=== PATIENT | female | born 2000 | race Two or more races ===

== ENCOUNTER 2024-05-21 08:46 | Day surgery (SDC) | payer MEDICAID ==
[~2024-05-21] VITALS: Ht 160 cm; Wt 122.5 kg
[2024-05-21] MEDS ORDERED: ceFAZolin 2 GM/D5W100ml 100 ML IV ONE (10:07)
[2024-05-21] MEDS ORDERED: ACETAMINOPHEN 500 MG TAB or CAP PO ONE ×2 (10:56→11:00)
[2024-05-21] MEDS ORDERED: BUPIVACAINE 0.25% INJ 50ML VIAL ONE (10:57)
[2024-05-21] MEDS ORDERED: GABAPENTIN 300 MG CAP PO ONE (11:00)
[2024-05-21] MEDS ORDERED: CELECOXIB 100 MG CAP PO ONE (11:00)
[2024-05-21] MEDS ORDERED: CELECOXIB 100 MG CAP ONE (11:02)
[2024-05-21] MEDS ORDERED: GABAPENTIN 300 MG CAP ONE (11:03)
[2024-05-21] MEDS ORDERED: KETOROLAC TROMETH 30 MG/ML 1ML VIAL ONE (11:18)
[2024-05-21] MEDS ORDERED: DexAMETHasone SOD PHOS 10MG/1ML VIAL INJ ONE (11:18)
[2024-05-21] MEDS ORDERED: GLYCOPYRROLATE 0.2 MG/ML 1ML VIAL ONE (11:18)
[2024-05-21] MEDS ORDERED: ONDANSETRON HCL 4 MG/2 ML VIAL ONE (11:18)
[2024-05-21] MEDS ORDERED: PROPOFOL 10 MG/ML 20 ML IV ONE (11:18)
[2024-05-21] MEDS ORDERED: LIDOCAINE 2% (LOCAL ANESTH.) PF 5ml SDV ONE (11:18)
[2024-05-21] MEDS ORDERED: KETAMINE 50mg/ML 1ml syringe ONE (11:19)
[2024-05-21] MEDS ORDERED: ceFAZolin 1GM VL ONE (11:20)
[2024-05-21] MEDS ORDERED: fentaNYL CITRATE 100 MCG/2 ML VL ONE (11:44)
[2024-05-21 12:27] VITALS: PULSE 103; RESP 20; TEMP 98.7; O2SAT 100
[2024-05-21] MEDS ORDERED: NALOXONE HCL 0.4 MG/ML VIAL IV PRN (12:45)
[2024-05-21] MEDS ORDERED: oxyCODONE HCL 5MG TAB PO PRN (12:45)
[2024-05-21] MEDS ORDERED: hydrALAZINE HCL 20 MG/ML VL IV PRN (12:45)
[2024-05-21] MEDS ORDERED: ONDANSETRON HCL 4 MG/2 ML VIAL IV PRN (12:45)
[2024-05-21] MEDS ORDERED: ePHEDrine SULFATE 50 MG/ML AMP IV PRN (12:45)
[2024-05-21] MEDS ORDERED: fentaNYL CITRATE 100 MCG/2 ML VL IV PRN (12:45)
[2024-05-21] MEDS ORDERED: FLUMAZENIL 0.1 MG/ML INJ 10ML MDV IV PRN (12:45)
[2024-05-21] MEDS: HYDROmorphone HCL 2 MG/ML VL/or syr IV PRN (13:05)
[2024-05-21 13:45] VITALS: BP 155/75; PULSE 69; RESP 16; O2SAT 99
--- NOTE | 2024-05-21 16:14 | DVH ---
XY R WRIST 2 VIEW XRAY, May 21, 2024 INDICATION: ORIF RIGHT WRIST TECHNICAL DATA: Frontal , bilateral oblique, ulnar deviation and lateral views were obtained of the r ight wrist. COMPARISON: None FINDINGS: There has been internal fixation of the Colles' fracture of the right wrist utilizing a plate and 8 s crews. The fracture fragments are in good position for eventual healing. IMPRESSION: 1. Internal fixation of Colles' fracture with near anatomic positioning achieved.
--- NOTE | 2024-05-21 16:28 | DVH ---
C-ARM FLUOROSCOPY: PROCEDURE: Right wrist ORIF FLUOROSCOPY TIME: 26.1 seconds DAP: 0.5 mgy FINDINGS: Spot intraoperative C arm radiographs demonstrating right wrist ORIF. IMPRESSION: Please refer to surgical report for detailed findings.
--- NOTE | 2024-05-23 16:24 | DVHOP2 ---
Operative Report - 2 Report Details Date: 05/21/24 Preop Diagnosis: Displaced Right distal radius fracture Postop Diagnosis: Displaced Right distal radius fracture Surgeon: dEy Mai MD Curer Acid Drum: Gera CHEUNG Anesthesiologist: George EMERSON Anesthesia: General Implant: ITS Volar distal radius Consent: The patient was informed of the risks and benefits of the procedure. These include but are not limited to complications of anesthesia, postoperative infection, incomplete relief of symptoms, recurrence of symptoms, damage to blood vessels, nerves and tendons, deep venous thrombosis, pulmonary embolism and possible need for repeat surgery in the future. Estimated Blood Loss: 5 cc Name of Procedure Performed 1. Open reduction and internal fixation of Right distal radius fracture 2. Intraoperative Fluoroscopy Procedure Details Procedure Details: CLINICAL SUMMARY: Risks/benefits/options/alternatives were discussed at length with patient and her family. Nonoperative versus operative management was presented to her. Risks include but not exclusive to bleeding, infection, nerve injury, tendon or ligament damage, hardware failure, nonunion, malunion, need for further surgery, amputation, DVT, and . She understood these risks and wished to proceed with surgery. OPERATION: The patient was brought from the home care giver unit and placed on the operating table in a supine position and administered general anesthetic. Tourniquet was placed around the rt upper extremity. Once adequate anesthesia had been obtained, the left upper extremity was prepped and draped in the usual sterile manner. A time out was performed. The upper extremity was then elevated and exsanguinated using an Esmarch dressing. The tourniquet was elevated to 250 mmHg. At this time an approximately 8 cm longitudinal incision was then made overlying the right flexor carpi radialis tendon from the flexion crease to the wrist proximally. This was carried down to the flexor carpi radialis, which was then retracted ulnarly. The floor of the flexor carpi radialis was then incised exposing the flexor pronator muscles. The flexor pollicis longus was retracted ulnarly and the pronator quadratus was longitudinally incised 1 cm from its origin. It was then elevated off of the fracture site exposing the fracture site, which was dorsally displaced. This was an intraarticular three-part frac ture. Under image control, the volar pieces and dorsal pieces were then carefully manipulated and reduced. Then, 2.06 two-inch K-wires were drilled radial into the volar ulnar fragment and then a second K-wire was then drilled from the dorsal radial to the dorsal ulnar piece. The fracture was then manipulated. The fracture ends were copiously irrigated with normal saline and curetted and then the fracture was reduced in the usual fashion by recreating the defect and distracting it. Further K-wires were then placed through the radial styloid into the proximal fragment. Patient had significant comminution. A volar distal radius plate was then picked and using two K-wires it was well seated. We checked with fluoro. We then used a combination of locking/nonlo cking screws and pegs. There was excellent reduction of the fragments and the fracture; excellent reduction of the intraarticular component and the fracture. Incision was then copiously irrigated with normal saline. Homeostasis was maintained with electrocautery. The pronator quadratus was closed with 3-0 Vicryl and the above skin incisions were closed proximally with 3-0 nylon. A large bulky dressing was then applied with a volar short-arm splint maintaining the wrist in neutral position. The tourniquet was let down. The fingers were immediately pink. The patient was awakened and taken to the recovery room in good condition. There were no operative complications. The patient tolerated the procedure well. Condition Good Disposition Home EDY MAI MD May 23, 2024 16:24
== END 2024-05-21 14:10 | disposition home or self-care (01) ==
LOC: SUR 08:46
PROVIDERS: ATTEND Orthopaedic Surgery Adult Reconstructive Orthopaedic Surgery
DX: S52.571A Other intraarticular fracture of lower end of right radius, initial encounter for closed fracture (principal); E66.01 Morbid (severe) obesity due to excess calories; Z68.42 Body mass index [BMI] 45.0-49.9, adult; Z98.891 History of uterine scar from previous surgery; X58.XXXA Exposure to other specified factors, initial encounter; Y93.89 Activity, other specified; Y92.89 Other specified places as the place of occurrence of the external cause; Y99.8 Other external cause status
CPT/HCPCS: 25609; 64417; 73100; C1713; J0690; J1100; J1171; J1885; J2003; J2405; J2704; J3010; 76000; J3490